=== PATIENT | female | born 1955 | race Hispanic/Latino ===

== ENCOUNTER 2017-10-29 23:00 | Emergency (ER) | payer MEDICARE ==
[2017-10-29 23:08] VITALS: TEMP 98
[2017-10-29] MEDS ORDERED: Naproxen 500 MG TAB PO STA (23:41)
[2017-10-29] MEDS ORDERED: Naproxen 500 MG TAB PO ONE (23:57)
[2017-10-30 00:31] LABS: BASO # 0.1 K/uL (0.0-0.2); BASO % 1.1 % (0.0-2.0); EOS # 0.3 K/uL (0.0-0.7); EOS % 2.9 % (0.0-4.0); HEMOGLOBIN 14.4 g/dL (12.0-16.0); LYMPH # 2.3 K/uL (1.0-4.3); LYMPH % 19.3 % (20.0-40.0); MEAN CELL VOLUME 89.4 fl (81.0-99.0); MEAN CORPUSCULAR HEMOGLOBIN 30.4 pg (27.0-31.0); MEAN PLATELET VOLUME 9.3 fl (7.2-11.7); MONO # 0.7 K/uL (0.0-0.8); MONO % 6.1 % (0.0-10.0); NEUT # 8.3 K/uL (1.8-7.0); NEUT % 70.6 % (50.0-75.0); RBC 4.75 Mil/uL (3.80-5.20); RED CELL DISTRIBUTION WIDTH 14.1 % (11.5-14.5); WHITE BLOOD COUNT 11.7 K/uL (4.8-10.8)
[2017-10-30 00:40] LABS: ALBUMIN 3.9 g/dL (3.5-5.0); GFR AFRICAN-AMERICAN > 60; GFR NON-AFRICAN AMERICAN > 60
[2017-10-30 00:42] LABS: ALT/SGPT 19 U/L (9-52); AST/SGOT 39 U/L (14-36); BLOOD UREA NITROGEN 25 mg/dl (7-17)
--- NOTE | 2017-10-30 02:08 | ED PDOC ---
HPI: Back Time Seen by Provider: 10/29/17 23:15 Chief Complaint (Nursing): Back Pain Chief Complaint (Provider): Right sided back pain, worse with movement History Per: Patient History/Exam Limitations: no limitations Onset/Duration Of Symptoms: Days Current Symptoms Are (Timing): Still Present Full Body Front + Back: 1 - Pain Quality Of Discomfort: Sharp (With movement ) Severity: Moderate Pain Scale Rating Of: 8 Previous Symptoms: None Additional Complaint(s): 62 yo female with HTN presents for evaluation of right sided back pain. PT states that she was seen by her PMD and labs drawn but she did not go back for results. Pt reports continued pain. Pt took tylenol at home which did not help. Pt deneis N/V/D. No urinary complaints. Past Medical History Reviewed: Historical Data, Nursing Documentation, Vital Signs Vital Signs: Last Vital Signs Temp 98 F 10/29/17 23:06 Pulse 88 10/29/17 23:06 Resp 18 10/29/17 23:06 BP 132/100 H 10/29/17 23:06 Pulse Ox 99 10/29/17 23:06 - Medical History PMH: No Chronic Diseases - Surgical History Surgical History: No Surg Hx - Family History Family History: States: Unknown Family Hx - Living Arrangements Living Arrangements: With Family - Social History Current smoker - smoking cessation education provided: No - Immunization History Hx Tetanus Toxoid Vaccination: No Hx Influenza Vaccination: No Hx Pneumococcal Vaccination: No - Home Medications Home Medications: Ambulatory Orders Medication Instructions Recorded Ibuprofen [Motrin] 600 mg PO TID PRN #30 tab 12/22/15 traMADol [Ultram] 50 mg PO Q8 PRN #20 tab 12/22/15 Naproxen [Naprosyn Tab] 1 tab PO Q8 PRN #15 tab 06/24/16 Cyclobenzaprine [Cyclobenzaprine 10 mg PO Q8H PRN #12 tab 10/30/17 HCl] Naproxen [Naprosyn] 500 mg PO BID PRN #20 tablet 10/30/17 Nitrofurantoin Macrocrystals 100 mg PO BID #10 cap 10/30/17 [Macrobid] - Allergies Allergies/Adverse Reactions: Allergies Allergy/AdvReac Type Severity Reaction Status Date / Time No Known Allergies Allergy Verified 06/23/16 23:38 Review of Systems ROS Statement: Except As Marked, All Systems Reviewed And Found Negative Constitutional: Negative for: Fever, Chills Gastrointestinal: Negative for: Nausea, Vomiting, Abdominal Pain Genitourinary Female: Negative for: Dysuria, Frequency Musculoskeletal: Positive for: Back Pain Physical Exam - Reviewed Nursing Documentation Reviewed: Yes Vital Signs Reviewed: Yes - Physical Exam Appears: Positive for: Well, Non-toxic, No Acute Distress Head Exam: Positive for: ATRAUMATIC, NORMAL INSPECTION, NORMOCEPHALIC Skin: Positive for: Normal Color, Warm, DRY Eye Exam: Positive for: Normal appearance ENT: Positive for: Normal ENT Inspection Neck: Positive for: Normal, Painless ROM Cardiovascular/Chest: Positive for: Regular Rate, Rhythm Respiratory: Positive for: Normal Breath Sounds. Negative for: Accessory Muscle Use, Respiratory Distress Gastrointestinal/Abdominal: Positive for: Normal Exam, Bowel Sounds, Soft. Negative for: Tenderness, Guarding Back: Positive for: Normal Inspection, Decreased ROM, Muscle Spasm. Negative for: Vertebral Tenderness Extremity: Positive for: Normal ROM Neurologic/Psych: Positive for: Alert, Oriented - Laboratory Results Result Diagrams: 10/30/17 00:21 10/30/17 00:21 - ECG O2 Sat by Pulse Oximetry: 99 Medical Decision Making Medical Decision Making: Labs normal. Pt ambulated to restroom to given urine. Disposition - Clinical Impression Clinical Impression: UTI (urinary tract infection), Back pain - Patient ED Disposition Is Patient to be Admitted: No Counseled Patient/Family Regarding: Diagnosis, Need For Followup, Rx Given - Disposition Disposition: Routine/Home Disposition Time: 03:45 Condition: GOOD Prescriptions: Cyclobenzaprine [Cyclobenzaprine HCl] 10 mg PO Q8H PRN #12 tab PRN Reason: Muscle Spasm Naproxen [Naprosyn] 500 mg PO BID PRN #20 tablet PRN Reason: Pain Nitrofurantoin Macrocrystals [Macrobid] 100 mg PO BID #10 cap Instructions: Urinary Tract Infections in Adults Forms: [email or web address] (Yi)
[2017-10-30 02:16] LABS: SQUAMOUS EPITHIAL 2 /hpf (0-5); URINE BACTERIA RARE (<OCC); URINE BILIRUBIN NEGATIVE (NEGATIVE); URINE BLOOD NEGATIVE (NEGATIVE); URINE CLARITY SLIGHTY-CLOUDY (Clear); URINE COLOR YELLOW (YELLOW); URINE GLUCOSE (UA) NEG (Normal); URINE LEUKOCYTE ESTERASE TRACE Leu/uL (Negative); URINE PROTEIN NEGATIVE (NEGATIVE)
[2017-10-30] MEDS ORDERED: Oxycodone/Acetaminophen 5/325 mg Tab PO STA (04:32)
[2017-10-30] MEDS ORDERED: Oxycodone/Acetaminophen 5/325 mg Tab ONE (04:49)
[2017-10-30 05:09] VITALS: BP 114/79; PULSE 80; RESP 15; O2SAT 97
== END 2017-10-30 05:09 | disposition home or self-care (01) ==
LOC: H.ER 23:00
DX: N39.0 Urinary tract infection, site not specified (principal); I10 Essential (primary) hypertension